=== PATIENT | female | born 1970 | race Caucasian/White ===

== ENCOUNTER 2017-01-25 13:08 | Outpatient (CLI) | payer OTHER | END 2017-01-25 13:40 | disposition home or self-care (01) | LOC: SMA 13:08 | PROVIDERS: ATTEND Family Medicine | DX: Z12.31 Encounter for screening mammogram for malignant neoplasm of breast (principal) | CPT/HCPCS: G0202 ==

== ENCOUNTER 2019-04-07 07:46 | Outpatient (CLI) | payer OTHER | END 2019-04-07 20:24 | disposition home or self-care (01) | LOC: SMA 07:46 | PROVIDERS: ATTEND Family Medicine | DX: Z12.31 Encounter for screening mammogram for malignant neoplasm of breast (principal) | CPT/HCPCS: 77067 ==

== ENCOUNTER 2020-05-13 10:09 | Outpatient (CLI) | payer OTHER | END 2020-05-13 20:27 | disposition home or self-care (01) | LOC: SMA 10:09 | PROVIDERS: ATTEND Family Medicine | DX: Z12.31 Encounter for screening mammogram for malignant neoplasm of breast (principal) | CPT/HCPCS: 77067 ==

== ENCOUNTER 2021-05-19 10:58 | Outpatient (CLI) | payer OTHER | END 2021-05-19 15:03 | disposition home or self-care (01) | LOC: SMA 10:58 | PROVIDERS: ATTEND Family Medicine | DX: Z12.31 Encounter for screening mammogram for malignant neoplasm of breast (principal); N64.89 Other specified disorders of breast | CPT/HCPCS: 77067 ==